=== PATIENT | female | born 1995 | race Caucasian/White ===

== ENCOUNTER → 2022-09-20 | Outpatient (CLI) | payer MEDICAID, SELFPAY ==
--- NOTE | 2022-09-20 13:33 | CPS ---
Patient received one dose of sterile saline for inhalation per Methacholine Challenge protocol and then received increasing doses of Methacholine. Patient did not receive the last dose of 16mg/ml due to the test being terminated by protocol from a 20% decrease in FEV1. 16mg/ml dose wasted into the pharmaceutical waste bin.
--- NOTE | 2022-09-21 07:32 | BRONCHALL ---
Bronchoprovocation Challenge Bronchoprovocation Challenge Bronchoprovocation Challenge: INTRODUCTION: The patient is a 26-year-old female that presents for a methacholine inhalation challenge secondary to a diagnosis of asthma. INTERPRETATION: Initial spirometry did not show any large airways obstructive ventilatory defect with preserved airflows throughout. The patient was then given progressively increasing doses of methacholine in a standardized fashion. The patient did ultimately experience a 28% decline in FEV1. The PD 20 FEV1 was noted to be 0.082. IMPRESSION: Moderate airway hyperresponsiveness
== END | disposition home or self-care (01) ==
LOC: PSN 12:56
PROVIDERS: PCP Family Medicine; Visit Provider Internal Medicine Critical Care Medicine
DX: J45.909 Unspecified asthma, uncomplicated (principal)
CPT/HCPCS: 94070; 95070; J3490; J7674

== ENCOUNTER → 2022-10-02 | Outpatient (CLI) | payer MEDICAID, SELFPAY ==
[2022-10-02 10:32] LABS: Absolute Lymphocyte Count 1.52 X10^3/uL (0.83-4.51); Absolute Neutrophil Count 3.7 X10^3/uL (2.0-7.7); Basophil# 0.04 X10^3/uL; Basophil% 0.7 % (0-1); Eosinophil# 0.04 X10^3/uL; Eosinophils% 0.7 % (0-5); Hematocrit 43.6 % (37-47); Hemoglobin 14.2 g/dL (12.0-15.0); Lymphocyte # 1.52 X10^3/ul (0.83-4.51); Lymphocyte % 27.1 % (19-41); Mean Corp Hgb Conc 32.6 g/dL (32-36); Mean Corpuscular Hgb 29.6 pg (27.0-32.0); Mean Platelet Vol. 9.9 fl (6.2-12.0); Monocyte# 0.33 X10^3/uL; Monocyte% 5.9 % (0-10); NRBC Flagged by Analyzer 0 % (0-5); Neutrophil # 3.65 X10^3/uL (2.7-7.7); Neutrophil % 65.2 % (47-70); Platelet Count 271 K/mm3 (150-450); RBC Distribution Width CV 12.1 % (11.6-14.6); RBC Distribution Width SD 40.8 fl (35.1-43.9); Red Blood Count 4.79 M/mm3 (4.2-5.4); White Blood Count 5.6 K/mm3 (4.4-11.0)
[2022-10-05 00:08] LABS: Alternaria tenuis <0.10 kU/L (Class 0); Ash, White <0.10 kU/L (Class 0); Aspergillus fumigatus <0.10 kU/L (Class 0); Bermuda Grass <0.10 kU/L (Class 0); Birch <0.10 kU/L (Class 0); Black Walnut <0.10 kU/L (Class 0); Cat Hair / Dander,Stand <0.10 kU/L (Class 0); Cedar, Mountain <0.10 kU/L (Class 0); Cladosporium herbarum <0.10 kU/L (Class 0); Cockroach, American <0.10 kU/L (Class 0); Cottonwood <0.10 kU/L (Class 0); D farinae Mite <0.10 kU/L (Class 0); D pteronyssinus <0.10 kU/L (Class 0); Dog Epithelia <0.10 kU/L (Class 0); Elm, American White <0.10 kU/L (Class 0); Immunoglobulin E < 2 IU/mL (6-495); Maple/Box Elder <0.10 kU/L (Class 0); Mulberry, White <0.10 kU/L (Class 0); Oak, White <0.10 kU/L (Class 0); Pecan <0.10 kU/L (Class 0); Penicillium Notatum <0.10 kU/L (Class 0); Pigweed, Rough <0.10 kU/L (Class 0); Ragweed, Short/Common <0.10 kU/L (Class 0); Russian Thistle <0.10 kU/L (Class 0); Sheep Sorrel <0.10 kU/L (Class 0); Sycamore, American <0.10 kU/L (Class 0); Timothy Grass <0.10 kU/L (Class 0)
[2022-10-05 14:16] LABS: Mouse Urine <0.10 kU/L (Class 0)
[2022-10-05 19:07] LABS: Aspirgillus flavus Negative (Neg:<1:1); Aspirgillus fumigatus Negative (Neg:<1:1); Aspirgillus niger Negative (Neg:<1:1)
[2022-10-06 11:07] LABS: Immunoglobulin E < 2 IU/mL (6-495)
== END | disposition home or self-care (01) ==
LOC: LAB 09:32
PROVIDERS: PCP Family Medicine; Referring Provider Internal Medicine Critical Care Medicine; Visit Provider Internal Medicine Critical Care Medicine
DX: J45.909 Unspecified asthma, uncomplicated (principal)
CPT/HCPCS: 36415; 82785; 85025; 86003; 86606

== ENCOUNTER 2023-03-08 16:12 | Emergency (ER) | payer MEDICAID, SELFPAY ==
[2023-03-08 16:15] VITALS: BP 132/101; PULSE 62; RESP 16; TEMP 36.4; O2SAT 100; BMI 30.9
--- NOTE | 2023-03-08 17:06 | CT_ITS ---
STUDY: CT ABDOMEN AND PELVIS WITHOUT CONTRAST REASON FOR EXAM: Female, 27 years old. Pain- LEFT FLANK, KNOWN KIDNEY STONE ON LEFT ONE WEEK AGO AT [facility]. TUBIAL LIGATION RADIATION DOSAGE (If Supplied By Facility): CTDIvol = ( 6.76 ) mGy, DLP = ( 317.38 ) mGycm TECHNIQUE: Transaxial images were obtained from the dome of the diaphragm to the symphysis pubis without oral contrast, and without intravenous contrast. Sagittal and coronal images were reconstructed. Individualized dose optimization techniques were used for this CT. COMPARISON: None. FINDINGS: The visualized lung bases are unremarkable. The visualized portions of the heart are within normal limits. Normal liver. Normal gallbladder and extrahepatic biliary system. Normal spleen. Normal pancreas. Normal bilateral adrenal glands. Normal right kidney. Mild left hydronephrosis with a 4.6 mm calculus in the proximal left ureter at the L3 level. Normal visualized stomach. Normal small intestine. Normal colon. There is non-visualization of the appendix. Normal abdominal aorta. Normal inferior vena cava. Normal retroperitoneum. Normal urinary bladder. Normal abdominal wall. Normal osseous structures. CT/Abdomen/Pelvis without Cont IMPRESSION: Proximal left ureter calculus with mild hydronephrosis. Electronically Signed: Aston Wilkins MD (Brooks) at 17:50 EDT Reading Location ID and State: [facility] / [place] , Service support ,
[2023-03-08] MEDS: Mag Hydrox/Al Hydrox/Simeth 30 ML UDC PO (17:19)
[2023-03-08] MEDS: 0.9% Normal Saline (1000mL) 1,000 ML 1000 ML IV (17:20)
[2023-03-08 17:34] LABS: Absolute Lymphocyte Count 2.09 X10^3/uL (0.83-4.51); Absolute Neutrophil Count 3.5 X10^3/uL (2.0-7.7); Basophil# 0.05 X10^3/uL; Basophil% 0.8 % (0-1); Eosinophil# 0.17 X10^3/uL; Eosinophils% 2.7 % (0-5); Hematocrit 43.5 % (37-47); Lymphocyte # 2.09 X10^3/ul (0.83-4.51); Mean Corp Hgb Conc 32.2 g/dL (32-36); Mean Corpuscular Hgb 28.9 pg (27.0-32.0); Mean Corpuscular Volume 89.9 fL (81-99); Mean Platelet Vol. 9.6 fl (6.2-12.0); Monocyte# 0.53 X10^3/uL; Monocyte% 8.4 % (0-10); NRBC Flagged by Analyzer 0 % (0-5); Neutrophil # 3.47 X10^3/uL (2.7-7.7); Neutrophil % 54.8 % (47-70); Platelet Count 297 K/mm3 (150-450); RBC Distribution Width CV 12.4 % (11.6-14.6); RBC Distribution Width SD 41.1 fl (35.1-43.9); Red Blood Count 4.84 M/mm3 (4.2-5.4); White Blood Count 6.3 K/mm3 (4.4-11.0)
[2023-03-08 17:38] LABS: Bacteria 0 SEEN /hpf (None Seen); Mucous, Urine 0 SEEN /hpf (<or=2+); Red Blood Cells-Urine 0 SEEN /hpf (0-5)
[2023-03-08 17:51] LABS: Color, Urine Yellow (Yellow); Glucose, Dipstick Normal (Normal); Ketone-Dipstick Negative (Negative); Leukocyte Esterase-Dipstick Negative /ul (Negative); Nitrite-Dipstick Negative (Negative); Occult Blood-Urine Negative /ul (Negative); Protein-Dipstick Negative (Negative); Specific Gravity, Urine 1.015 (1.002-1.030); Urine Bilirubin Dipstick Negative (Negative); Urine Clarity Clear (Clear); Urine Urobilinogen Normal (Normal)
[2023-03-08 17:54] LABS: AST(SGOT) 10 U/L (15-37); Alanine Aminotransfer ALT/SGPT 28 U/L (13-56); Alkaline Phosphatase 76 U/L (45-117); Anion Gap 5 (5-15); BUN 11 mg/dL (7-18); BUN/Creat Ratio 11.4 RATIO (10-20); Calcium,Total 9.6 mg/dL (8.5-10.1); Chloride 106 mmol/L (98-107); Creatinine, Serum 0.96 mg/dL (0.55-1.02); EST Glomerular Filtration Rate 73 mL/min (>60); Est Glom Filt Rate - Afr Amer 89 mL/min (>60); Estimated Creatinine Clearance 89.34 ml/min; Globulin 3.9 g/dL (2.2-4.2); Glucose 92 mg/dL (74-106); Lipase 36 U/L (13-75); Potassium 3.7 mmol/L (3.5-5.1); Protein, Total 7.9 g/dL (6.4-8.2); Sodium Level 138 mmol/L (136-145)
--- NOTE | 2023-03-08 17:54 | EDS_ITS ---
<Statement entered by Ruslan Hearn MD - 03/08/23 21:31> I have personally performed a face to face assessment of the patient and have reviewed the CHEKO Note. HPI History of Present Illness Chief Complaint: Flank Pain Narrative Narrative: Patient is a 27-year-old female with history of kidney stones who presents to the emergency department with continued left flank pain with left abdominal pain. Patient was seen at [facility] 8 days ago for similar symptoms. Patient had a 5 millimeter obstructing stone with hydronephrosis. Patient was then discharged home to follow-up. Patient states that her pain continued, and she is here for reevaluation. She denies any fever or chills. Patient she has increased in urinary frequency. She was on an antibiotic by her PCP however that has been finished. She is unsure what antibiotic it was. [facility] Medical History Anxiety Asthma Auditory hallucinations Bilateral leg pain Bipolar disorder with depression Bronchitis Change in bowel habit CHF (congestive heart failure) Cough COVID-19 virus infection Depression Dizzy spells Easy bruising Edema of both lower legs Fatigue H/O CHF History of acute pulmonary edema Kidney stone Leg cramping Malar rash Maternal tobacco use Migraine headache Moderate recurrent major depression Nausea Need for hepatitis C screening test Ovarian cyst Palpitation Polymyalgia Pulse irregularity Screening for cervical cancer Screening for diabetes mellitus Screening for ischemic heart disease Shortness of breath Shortness of breath on exertion Sore throat Tension headache Umbilical mass Upper respiratory infection Urinary tract infection during Visual hallucinations Vitamin D deficiency Well adult exam Home Medications albuterol sulfate 1.25 mg/3 mL solution for nebulization 1.25 mg inhalation Q6H 08/19/22 [History Last Taken Unknown] albuterol sulfate 90 mcg/actuation aerosol inhaler (ProAir HFA) 2 puff inhalation Q6H PRN 08/19/22 [History Last Taken Unknown] ascorbate calcium (vitamin C) 500 mg tablet 500 mg PO DAILY 08/19/22 [History Last Taken Unknown] buspirone 5 mg tablet 5 mg PO TID 08/19/22 [History Last Taken Unknown] cholecalciferol (vitamin D3) 1,250 mcg (50,000 unit) capsule 1,250 mcg PO QWEEK 08/19/22 [History Last Taken Unknown] citalopram 20 mg tablet 20 mg PO DAILY 08/19/22 [History Last Taken Unknown] docusate sodium 100 mg capsule 100 mg PO BID PRN 08/19/22 [History Last Taken Unknown] ferrous sulfate 325 mg (65 mg iron) tablet 325 mg PO DAILY 08/19/22 [History Last Taken Unknown] loratadine 10 mg tablet (Allergy Relief (loratadine)) 10 mg PO DAILY 08/19/22 [History Last Taken Unknown] budesonide-formoterol HFA 160 mcg-4.5 mcg/actuation aerosol inhaler (Symbicort) 2 puff inhalation BID #1 ea 10/22/22 [Rx Last Taken Unknown] hydrocodone-acetaminophen 5-325mg 5mg-325mg 1 tab PO Q4H PRN PRN Pain 3 days #10 TABLETS 03/08/23 [Rx Last Taken Unknown] ondansetron 4 mg disintegrating tablet 4 mg PO Q8H PRN PRN Nausea #10 tabs 03/08/23 [Rx Last Taken Unknown] tamsulosin 0.4 mg capsule (Flomax) 0.4 mg PO DAILY #14 caps 03/08/23 [Rx Last Taken Unknown] Allergy/AdvReac Type Severity Reaction Status Date / Time carbinoxamine [From [facility]] Allergy Mild PT UNSURE Verified 03/08/23 16:15 OF REACTION Pertussis Vaccines Allergy Mild PT UNSURE Verified 03/08/23 16:15 OF REACTION pseudoephedrine [From Rondec] Allergy Mild PT UNSURE Verified 03/08/23 16:15 OF REACTION fluoxetine [From Prozac] AdvReac Other Verified 03/08/23 16:13 Family History Mother Cancer Hypertension Chronic mental illness Father Cancer Hypertension Surgical History History of bilateral tubal ligation History of tonsillectomy Previous section S/P myringotomy with insertion of tube Social History household members: spouse and children housing: house number of children: 3 Smoking Status: Never smoker alcohol intake: never substance use type: former substance user caffeine: Yes ROS ROS ED ROS Narrative Constitutional: Negative for fever, chills, weight loss, weakness Eyes: Negative for vision loss, vision change, double vision ENT: Negative for any sore throat, ear pain, congestion Cardiovascular: Negative for any chest pain, tightness, palpitations Respiratory: Negative for any cough, sputum production, hemoptysis, dyspnea, dyspnea on exertion, orthopnea Gastrointestinal: Negative for any nausea, vomiting, diarrhea, constipation, blood in stool, blood in vomit. Positive for left lower abdominal pain, flank pain : Negative for any urinary frequency, dysuria, retention, blood in urine Muscle skeletal: Negative for any muscle joint pain, stiffness, myalgias, arthralgias, neck pain. Positive left sided flank pain Neurological: Negative for any headache, syncope, numbness or tingling, di zziness Skin: Negative for any rashes, lumps, itching, abrasions, lacerations Psychiatric: Negative for any depression, anxiety, stress, suicidal ideation, homicidal ideation Hematologic: Negative for any easy bruising, excessive bruising, easy bleeding Allergies: Negative for any eczema, hives, rash EXAM Physical Exam Narrative Exam Narrative: Vital signs reviewed. Patient appears generally well, patient is in no distress. HEET: Head normocephalic atraumatic, TMs clear bilaterally. Posterior pharynx is clear, moist mucous membranes. Nares clear bilaterally. Neck: Supple with no lymphadenopathy or tenderness. No signs of meningismus, negative jolt sign. Cardiac: Regular rate and rhythm no murmurs gallops or rubs, equal peripheral pulses bilaterally. Respiratory: Lungs clear to auscultation bilaterally. No chest tenderness. Abdomen: Soft, nontender, nondistended. No abdominal bruit or pulsatile masses. No hepatosplenomegaly Extremities: No peripheral edema, no signs of gross trauma or deformity. Active full range of motion of all extremities. Neuro: Cranial nerves II through XII intact, no focal neurological deficits. Skin: Clean dry and intact with no rash, purpura, petechiae, vesicles or pustules. Backs/flank: Positive right-sided CVA tenderness. No midline spinal tenderness, no deformity. Psych: Normal mood and affect. No SI, HI or acute psychosis. Const Vital Signs: 03/08/23 16:15 03/08/23 17:22 Temperature 97.5 F L Temperature Source Temporal Pulse Rate 62 Respiratory Rate 16 Respiratory Effort Normal Respiratory Pattern Normal Blood Pressure 132/101 H Blood Pressure Mean 111 Pulse Ox 100 Oxygen Delivery Method Room Air MDM MDM Lab Data Labs: Laboratory Results - last 24 hr 03/08/23 03/08/23 17:25 17:32 WBC 6.3 RBC 4.84 Hgb 14.0 Hct 43.5 MCV 89.9 MCH 28.9 MCHC 32.2 RDW Std Deviation 41.1 RDW Coeff of [place] 12.4 Plt Count 297 MPV 9.6 Immature Gran % (Auto) 0.300 Neut % (Auto) 54.8 Lymph % (Auto) 33.0 [place] % (Auto) 8.4 Eos % (Auto) 2.7 Baso % (Auto) 0.8 Absolute Neuts (auto) 3.5 Absolute Lymphs (auto) 2.09 Nucleated RBC % 0 Sodium 138 Potassium 3.7 Chloride 106 Carbon Dioxide 27.0 Anion Gap 5 BUN 11 Creatinine 0.96 Estim Creat Clear Calc 89.34 Est GFR (MDRD) Af Amer 89 Est GFR (MDRD) Non-Af 73 BUN/Creatinine Ratio 11.4 Glucose 92 Calcium 9.6 Total Bilirubin 0.30 AST 10 L ALT 28 Alkaline Phosphatase 76 Total Protein 7.9 Albumin 4.0 Globulin 3.9 Albumin/Globulin Ratio 1.0 Lipase 36 Urine Color Yellow Urine Clarity Clear Urine pH 6.0 Ur Specific [place] 1.015 Urine Protein Negative Urine Glucose (UA) Normal Urine Ketones Negative Urine Occult Blood Negative Urine Nitrite Negative Urine Bilirubin Negative Urine Urobilinogen Normal Ur Leukocyte Esterase Negative Urine RBC 0 SEEN Urine WBC 0-5 SEEN Ur Squamous Epith Cells 0-5 SEEN Urine Bacteria 0 SEEN Urine Mucus 0 SEEN Urine Test Negative Radiography Diagnostic Testing: Clinical Impression(s) from Imaging Studies Abdomen/Pelvis CT 03/08/23 17:06 IMPRESSION: Proximal left ureter calculus with mild hydronephrosis. Electronically Signed: Aston Wilkins MD (Brooks) at 17:50 EDT , Treatment and Re-Evaluation :: Patient appears to be in no obvious distress, patient's vital signs are stable. Patient presents to the emergency department with complaints of left-sided flank pain. Patient was CBC was unremarkable, chemistries were unremarkable. Currently waiting for urinalysis. Patient's CT scan of the abdomen pelvis shows a proximal left ureteral calculus with mild hydronephrosis. Patient urinalysis was negative. Patient's laboratory values showed normal CBC, patient's chemistries were unremarkable, liver enzymes were unremarkable. Patient did receive a CT scan of the abdomen pelvis without contrast, this continue to show a proximal left ureteral calculus with mild hydronephrosis, 4.6 mm. Secondary to this finding, patient looks well, patient is not requiring any significant pain medicine, patient appears nontoxic. At this time I do believe the patient can be discharged for outpatient follow-up. She has a number through [email or web address] however I will also give her a urologist in town here. She will be given a prescription for Brady, Zofran, as well as Flomax. She was given strict return precaution to return for any worsening back pain, fever chills nausea vomiting. All questions were answered, patient stable for discharge. She does understand the importance of follow-up. Discharge Plan Triage Chief Complaint: Flank Pain ED Midlevel Provider: Ruslan Sabillon ED Provider: Ruslan Hearn Dx/Rx/DC Orders Clinical Impression: Kidney stone Instructions: Identifying Kidney Stones, ED Kidney Stone w/ Colic Prescriptions: New hydrocodone-acetaminophen 5-325 mg tablet 1 tab PO Q4H PRN PRN (Reason: Pain) 3 Days Qty: 10 0RF ondansetron 4 mg tablet,disintegrating 4 mg PO Q8H PRN PRN (Reason: Nausea) Qty: 10 0RF tamsulosin [Flomax] 0.4 mg capsule 0.4 mg PO DAILY Qty: 14 0RF No Action ascorbate calcium (vitamin C) 500 mg tablet 500 mg PO DAILY buspirone 5 mg tablet 5 mg PO TID cholecalciferol (vitamin D3) 1,250 mcg (50,000 unit) capsule 1,250 mcg PO QWEEK citalopram 20 mg tablet 20 mg PO DAILY albuterol sulfate [ProAir HFA] 90 mcg/actuation HFA aerosol inhaler 2 puff inhalation Q6H PRN albuterol sulfate 1.25 mg/3 mL solution for nebulization 1.25 mg inhalation Q6H ferrous sulfate 325 mg (65 mg iron) tablet 325 mg PO DAILY loratadine [Allergy Relief (loratadine)] 10 mg tablet 10 mg PO DAILY docusate sodium 100 mg capsule 100 mg PO BID PRN budesonide-formoterol [Symbicort] 160-4.5 mcg/actuation HFA aerosol inhaler 2 puff inhalation BID Qty: 1 3RF Rx Instructions: administer with spacer, rinse mouth after each use Primary Care Provider: Carmelita Marquez Referrals: Jozef John MD [Med Staff - Active Staff] - Carmelita Marquez DO [Primary Care Provider] - Activity Restrictions/Additional Instructions: You have a 4.6 mm proximal obstructing stone with mild hydronephrosis to the left side. You need to follow-up with urology to have this removed. Disposition Disposition: Home, Self Care Discharge Date/Time: 03/08/23 18:53
[2023-03-08 18:05] LABS: Internal QC Validated? YES +Cl - CLEAR BKGD; Pregnancy, Urine Negative Negative; Record Kit Lot#,Urine Preg 667200; Squamous Epithelial Cells - UA 0-5 SEEN /hpf (5-10); White Blood Cells 0-5 SEEN /hpf (0-5)
== END 2023-03-08 18:53 | disposition home or self-care (01) ==
PROVIDERS: Nurse Practitioner; Emergency Provider Emergency Medicine; PCP Family Medicine; Visit Provider Emergency Medicine
DX: N13.2 Hydronephrosis with renal and ureteral calculous obstruction (principal); I50.9 Heart failure, unspecified; J45.909 Unspecified asthma, uncomplicated; F41.9 Anxiety disorder, unspecified; F32.A Depression, unspecified; Z79.899 Other long term (current) drug therapy; Z79.51 Long term (current) use of inhaled steroids
CPT/HCPCS: 74176; 80053; 81001; 81025; 83690; 85025; 96360; 99284; J7030